=== PATIENT | male | born 1945 | race Caucasian/White ===

== ENCOUNTER → 2016-08-25 | Outpatient (CLI) | payer OTHER, BC | END | disposition home or self-care (01) | LOC: C.RC 12:23 | PROVIDERS: ATTEND Specialist | DX: R06.00 Dyspnea, unspecified (principal) ==

== ENCOUNTER → 2016-09-05 | Outpatient (CLI) | payer OTHER, BC ==
--- NOTE | 2016-09-06 06:31 | PAP/PSG TECHNICIAN REPORT ---
[facility] Crinkling Machine Operator Polysomnogram Report Study name: None Report date: 09/06/2016 Study date: 09/05/2016 Referring Physician: DR. HENNING Name: JUAN MCQUEEN Interpreting Physician: Ruiz Smith M.D. Date of : 1945 Crinkling Machine Operator: Tod Baze RPSGT. Sex: Male Age: 71 StudyType: PSG PAP Weight: 130 lbs Height: 71 years, Height 5' 9" BMI: 19.2 Medications: ASPIRIN 81 MG, TENORMIN 25 MG, PLAVIX 75 MG, GLUCAGON, VENTOLIN HFA Patient History PATIENT HAD A HOME SLEEP STUDY DONE IN MARCH OF 2016. HE WAS POSITIVE FOR DORI WITH AN AHI OF 6.8/HR. HE HAS BEEN WEARING CPAP FOR THE PAST FEW MONTHS AND HAS NOT BEEN TOLERATING CPAP. HE IS HERE TODAY FOR A BIPAP TITRATION. RM 1 Parameters Monitored NPSG: E1-M2, E2-M1, Fp1-M2, Fp2-M1, F3-M2, F4-M2, F4-M1, C3-M2, C4-M2, C4-M1, O1-M2, O2-M2, O2-M1, T3-M2, T4-M1, P3-M2, P4-M1, CHIN1, CHIN2, HR, EKG, Legs, PFLOW, SNOR, FLOW, CFLOW, Tidal Volume, THOR, ABDO, SpO2, PLTH, CPRESS, ETCO2 Wave, ETCO2, pH Sleep Architecture Sleep Stages Time at Lights Off 10:05:03 PM STAGES Time (min.) TST (%) Time at Lights On 5:38:33 AM Wake 142.0 -- Total Recording Time (TRT) 454.00 min. N1 29.0 9 Total Sleep Period (TSP) 434.5 min. N2 231.5 74 Total Sleep Time (TST) 311.5min. N3 24.5 8 Awake Time 142.5 min. REM 26.5 9 Wake after Sleep Onset 128.5 min. Sleep Efficiency (SE) 69 % Sleep Onset Latency (ROSITA) 13.5 min. Number of Stage 1 Shifts None Awakenings 63 Stage Changes 188 Number of REM periods 5 REM 26.5 9 REM Latency 80.5 min. NREM 285.0 91 Body Position Analysis Supine Right Left Side Prone Vertical Total Sleep Time (min.) 366.1 59.8 11.5 71.29 0.0 0.0 Total Sleep Time (%) 77% 19% 4% 23 0% N/A% Total Sleep Time REM (min.) 17.5 9.0 0.0 None 0.0 0.0 Total Sleep Time NREM (min.) 222.7 50.8 11.5 None 0.0 0.0 Intermittent Wake (min.) 125.9 16.1 0.0 None 0.0 0.0 Total Sleep Period (%) 80% None None None None None Arousals Myoclonus (PLM) * Events Count Index Events Count Index Spontaneous 55 11 Events Awake (PLMW) 130 54.9 Respiratory 20 4.6 Events Asleep w/ Arousal (PLMA) 19 3.7 PLM 17 4 Events Asleep w/o Arousal (PLMS) 190 36.6 Snoring 3 1 Total Asleep 209 40.3 Total 95 18 Total 339 45 Respiratory Analysis * CA OA MA CH H RERA Total Count 1 10 0 0 23 10 34 Index 0.2 1.9 0.0 0 4.4 2 8.5 Mean Duration 27.0 22.6 0.0 0.00 19.2 18.3 20.0 Longest Duration 27.0 41.5 0.0 0.00 0.0 24.3 41.5 Respiratory Event Summary Total Supine ~Supine Right Left Prone REM NREM Apneas Count 11 11 0 0 0 N/A 1 10 Index 2.1 3 0 0.0 0.0 N/A 2 2 Hypopneas (4% Desat) Count 23 23 0 0 0 N/A 2 21 Index 4.4 5.7 0 0.0 0.0 N/A 4.5 4.4 Apneas & All Hypopneas Count 34 34 0 0 0 N/A 3 31 Index 6.5 8 0 0 0 N/A 6.8 6.5 Respiratory Events (Box Gluer+All Hyp+RERA) Count 34 44 0 0 0 N/A 3 31 Index 8.5 11 0 0.0 0.0 N/A 6.8 8.6 Respiratory Related Arousal Count 20 44 0 0 0 N/A 2 22 Index 4.6 6 0 0 0 N/A 5 5 Snoring Analysis Supine Right Left Prone REM NREM Total Snore duration 1.2 min Snores count 39 2 0 N/A 1 40 41 Snore mean duration 1.7 Sec Snores index 10 2 0 N/A 2.3 8.4 7.9 TST with snoring (%) 0.4% Desaturation Event Summary: Minimum %SpO2 Event Count Mean/Min/Max Duration(sec.) Desaturation Index % Time In Bed > 90 31 40.9 / 14.0 / 65.5 6.3 67.1 86 - 90 7 31.6 / 14.0 / 46.5 3.5 27.2 81 - 85 1 56.4 / 56.4 / 56.4 4.6 3.0 76 - 80 0 N/A 0.0 2.7 71 - 75 0 N/A 0.0 0.0 66 - 70 0 N/A 0.0 0.0 61 - 65 0 N/A 0.0 0.0 56 - 60 0 N/A 0.0 0.0 51 - 55 0 N/A 0.0 0.0 < 50 0 N/A 0.0 0.0 Total REM NREM Awake <50% 0.0 min. 0.0 min. 0.0 min. 0.0 min. 51 - 60% 0.0 min. 0.0 min. 0.0 min. 0.0 min. 61 - 70% 0.0 min. 0.0 min. 0.0 min. 0.0 min. 71 - 80% 11.6 min. 11.0 min. 0.0 min. 0.6 min. 81 - 90% 132.2 min. 14.2 min. 93.6 min. 24.5 min. 91 - 100% 294.0 min. 1.3 min. 191.5 min. 101.3 min. Average 91 82 92 93 Minimum SpO2 77 77 84 77 Desaturation Event Index 4.4 6.8 5.7 1.7 # Desat. Events below 89% 24 3 20 1 Time(%) with Saturation below 89% 11.4 5.4 4.2 1.8 Time(min.) with Saturation below 89% 50.0 23.7 18.5 7.8 Time (mins) REM (mins) NREM (mins) % of TST SpO2 Below 90% 29 3 N26 21.1 SpO2 Below 88% 13 0 0 9 Heart Rate Analysis Min (bpm) Max (bpm) Average (bpm) Awake 57 127 67 NREM 56 77 61 REM 56 84 68 Overall 56 84 62 Supplemental O2 Values Minimum O2 level: None Value Start Time End Time Crinkling Machine Operator Comments Mr. Mcqueen slept in the right, left and supine positions. PVC's and Pac's noted. Leg movements noted. No bruxism noted. PAP initiated at an IPAP of +8 CMH2O and an EPAP of +4 CMH2O up-titrated to a level of: IPAP +13 CMH2O, EPAP + 9 CMH20. The patient brought in his own mask that was used during titration Mr. Mcqueen awoke to use the restroom 1 time during the night. Mr. Mcqueen stated I did not sleep as well as I do when I am in my own bed. The patient called me in several times to say that the pressure felt too high and that the mask felt that it was leaking. I tried a different model mask on the patient but mask fit worse on this patient. The patient did let me tighten the mask a little bit but he didn't want it too tight. For most of the night, I tried turning down the pressure when he woke up and raised it when he fell back asleep. The patient said that he couldn't tell a difference between BIPAP and CPAP, which he couldn't tolerate before coming into the lab. We discussed in the morning that if he kept his mask more snug on his face it will help keep in better sealed and prevent mask leaks. The final report will be interpreted and signed by a sleep physician. The completed physician report will then be placed in the patient medical record. Therapy Event: Therapy (cm H20) 12/30 01/31 03/03 04/03 04/04 05/04 08/12 08/01 08/02 Total Time at Pressure (min.) 96.3 11.9 59.1 27.2 5.4 98.4 11.3 18.3 125.7 TST at Pressure (min.) 70.3 8.4 50.0 24.2 4.9 54.5 7.8 12.3 79.2 # Periods 1 1 2 1 1 2 1 1 1 Sleep Onset (min.) 13.5 0.0 1.6 0.0 0.0 0.0 0.0 0.0 0.0 REM Onset (min.) 94.0 6.7 N/A N/A N/A 7.0 0.0 N/A 29.2 Sleep Efficiency % 73 70 84 89 90 55 68 67 63 Wakefulness (%) 27.0 29.5 15.4 11.0 9.2 44.6 31.1 32.8 37.0 Wakefulness (min.) 26.0 3.5 9.1 3.0 0.5 43.9 3.5 6.0 46.5 NREM 1 (%) 3.6 12.6 5.9 9.2 9.2 4.6 17.8 16.4 6.4 NREM 1 (min.) 3.5 1.5 3.5 2.5 0.5 4.5 2.0 3.0 8.0 NREM 2 (%) 57.4 49.4 72.3 66.0 81.6 29.7 40.1 50.8 49.5 NREM 2 (min.) 55.3 5.9 42.7 18.0 4.4 29.2 4.5 9.3 62.2 NREM 3 (%) 11.4 0.0 6.4 13.8 0.0 6.1 0.0 0.0 0.0 NREM 3 (min.) 11.0 0.0 3.8 3.7 0.0 6.0 0.0 0.0 0.0 REM (%) 0.5 8.4 0.0 0.0 0.0 15.0 11.1 0.0 7.2 REM (min.) 0.5 1.0 0.0 0.0 0.0 14.8 1.2 0.0 9.0 # Arousals 17 5 20 10 1 13 8 4 17 Arousal Index 14.5 35.9 24.0 24.8 12.2 14.3 61.9 19.5 12.9 # Snore 18 0 7 1 0 3 0 1 11 Snore Index 15.4 0.0 8.4 2.5 0.0 3.3 0.0 4.9 8.3 AHI 2.6 14.3 10.8 9.9 12.2 8.8 15.5 19.5 0.8 AHI Supine 4.6 14.3 10.8 9.9 12.2 8.8 15.5 24.0 1.5 AHI Non-Supine 0.0 N/A N/A N/A N/A N/A N/A 0.0 0.0 NREM AHI 2.6 8.1 10.8 9.9 12.2 10.6 9.2 19.5 0.9 REM AHI 0.0 60.0 N/A N/A N/A 4.1 48.1 N/A 0.0 RDI 6.8 21.5 13.2 9.9 12.2 11.0 15.5 19.5 0.8 # Obstructive 1 2 0 1 0 3 1 2 0 # Central Ap 0 0 0 0 0 1 0 0 0 # Mixed 0 0 0 0 0 0 0 0 0 # Hypopneas 2 0 9 3 1 4 1 2 1 RERAS 5 1 2 0 0 2 0 0 0 Total Respiratory Events 8 3 11 4 1 10 2 4 1 Time Below SpO2 89.00% (min.) 0.2 0.7 6.6 1.6 0.9 15.3 1.4 0.0 15.5 Mean NREM SpO2 (%) 94 92 91 91 90 91 93 92 90 Mean REM SpO2 (%) 88 90 N/A N/A N/A 83 81 N/A 80 Mean Sleep SpO2 (%) 94 92 91 91 90 89 91 92 89 Min NREM SpO2 (%) 89 85 85 86 87 86 85 90 84 Min REM SpO2 (%) 83 83 N/A N/A N/A 79 77 N/A 77 Position Supine (min.) 39.3 8.4 50.0 24.2 4.9 54.5 7.8 10.0 41.2 Position Non-supine (min.) 31.0 0.0 0.0 0.0 0.0 0.0 0.0 2.3 38.0 LM Index Sleep 9.4 43.0 10.8 19.8 12.2 45.1 77.3 53.7 84.9 LM Index NREM 7.7 24.4 10.8 19.8 12.2 40.8 92.2 53.7 88.0 LM Index REM 240.0 180.0 N/A N/A N/A 56.9 0.0 N/A 60.0 Mean Heart Rate (bpm) 59 62 61 62 61 63 64 61 64 Min Heart Rate (bpm) 56 56 57 59 58 56 59 58 58
--- NOTE | 2016-09-09 12:49 | POLYSOMNOGRAPH REPORT ---
CLINICAL DATA: 71-year-old male with BMI of 19.[address] Mateo Foote of [facility]. The patient has mild sleep apnea and has been on CPAP for several months, but has not been tolerating it. He was sent for a BiPAP titration. SLEEP ARCHITECTURE: Total sleep period was 434.5 minutes. Total sleep time was 311.5 minutes divided between 285 minutes of non-REM sleep and 26.5 minutes of REM sleep. Sleep onset latency was 13.5 minutes. REM latency was 80.5 minutes. Sleep efficiency was 69%. Wake after sleep onset was 128.5 minutes. Sleep consisted of stage N1 9%, N2 74%, N3 8%, and REM 9%. AROUSAL DATA: 95 arousals were recorded for an index of 18 per hour. PLM DATA: Significantly elevated limb movements during sleep were noted. There were 209 limb movements during sleep noted for an index of 40.3 per hour with arousal index of 3.7 per hour. RESPIRATORY DATA: The AHI was 6.5. There was 1 central and 10 obstructive apneic episodes. The longest duration of apnea was 27 seconds. There were 23 hypopneic episodes. The mean duration of hypopnea was 19.2 seconds. OXIMETRY DATA: Nocturnal hypoxemia was seen. Oxygen jocelyne was 77% during REM. The mean saturation was 91%. Time below 88% was 13 minutes. EKG: Heart rates ranged from 56-84 beats per minute. PVCs and PACs were noted. TREATMENT SUMMARY: The patient slept in the right, left, and supine positions. BIPAP was started at a pressure of 8/4 and was titrated up to 13/9 using his own face mask. He called several times for the compounding technician stating that he felt the pressure was too high and that his facemask was leaking. Adjustments were made but he did not want it too tight. The patient did not feel he could tell the difference between BiPAP and CPAP. At his final pressure setting of BiPAP 13/9, the patient slept for 79.2 minutes with an AHI of 0.8. IMPRESSION: Obstructive sleep apnea/hypopnea corrected with BiPAP 13/9. RECOMMENDATIONS: The patient should be started on the above noted treatment regimen and seen back in followup within 90 days to document efficacy and compliance. [facility]
== END | disposition home or self-care (01) ==
LOC: C.NEUR 21:00
PROVIDERS: ATTEND Specialist
DX: G47.33 Obstructive sleep apnea (adult) (pediatric) (principal)